=== PATIENT | male | born 1970 | race Caucasian/White ===

== ENCOUNTER → 2023-11-14 13:24 | Outpatient (BNVA) | payer SELFPAY | PROVIDERS: Visit Provider Nurse Practitioner Family | DX: R39.9 Unspecified symptoms and signs involving the genitourinary system (principal); M54.50 Low back pain, unspecified | CPT/HCPCS: 81000 ==

== ENCOUNTER → 2024-10-16 13:17 | Outpatient (BNVA) | payer OTHER, SELFPAY | PROVIDERS: PCP Family Medicine; Referring Provider Family Medicine; Visit Provider Orthopaedic Surgery | DX: M79.642 Pain in left hand (principal) | CPT/HCPCS: 73130 ==